=== PATIENT | female | born 1990 | race Caucasian/White ===

== ENCOUNTER 2018-11-24 19:25 | Emergency (ER) | payer OTHER ==
[~2018-11-24] VITALS: Ht 162.6 cm; Wt 96.0 kg
[2018-11-24 19:27] VITALS: BP 144/75; PULSE 74; RESP 18; Ht 162.6 cm; Wt 96.0 kg
[2018-11-24] MEDS ORDERED: AMOX1TAB10 PO (21:00)
[2018-11-24] MEDS ORDERED: AMOXICILLIN/CLAV 875 MG TAB PO ONE (21:00)
--- NOTE | 2018-11-24 21:06 | ERD ---
ER Documentation Chief Complaint Chief Complaint left earache since 1529 HPI 28yo Female presents to ED with complaint of left earache x 6 hours [employer]. Patient admits to recent cough and cold. Notes daughter recently diagnosed with ear infection and started on antibiotics. Patient admits to decreasedmuffled hearing, pain, denies discharge. Recent fevers, chills. Rates pain as 9 out of 10 notes to taking 2 Aleve 2 hours prior to presentation with no improvement in symptoms. ROS All systems reviewed and are negative except as per history of present illness. Medications Home Meds Active Scripts Amoxicillin/Potassium Clav (Amox-Clav 875-125 mg Tablet) 875-125 mg Tab, 1 TAB PO BID for 10 Days, #19 TAB Take for 10 days. 1st dose given in ED Prov:LONDON JACKSON PA-C 11/24/18 Allergies Allergies: Coded Allergies: No Known Allergies (Verified Allergy, Unknown, 11/24/18) PMhx/Soc Medical and Surgical Hx: pt denies Medical Hx, pt denies Surgical Hx Hx Alcohol Use: No Hx Substance Use: No Hx Tobacco Use: No Smoking Status: Never smoker FmHx Family History: No diabetes, No coronary disease, No other Physical Exam Vitals Vital Signs Date Temp Pulse Resp B/P (MAP) Pulse Ox O2 O2 Flow FiO2 Time Delivery Rate 11/24/18 97.6 21:18 11/24/18 99.2 74 18 144/75 97 19:27 (98) Physical Exam Constitutional: Well developed. Well nourished. No acute distress Head/Eyes: Atraumatic. Normocephalic. PERRL. EOMI ENT: Moist mucous membranes. Voice normal. Left TM erythematous and bulging. External auditory canal clear with no erythema or edema, no foreign body, no cerumen impaction, no discharge. Neck: Supple. No lymphadenopathy Cardiovascular: Regular rate and rhythm. No murmurs, rubs, or gallops. Distal pulses intact Respiratory: No respiratory distress. Normal breath sounds. No wheezes, rales, or rhonchi. Extremities: No edema, Full ROM Skin: Dry. No rashes. Warm Neurological: Alert and oriented X 3. Normal speech Psychiatric: Normal mood. Normal affect Results 24 hrs Current Medications Medications Dose Sig/Darrius Start Time Status Last (Trade) Ordered Route PRN Stop Time Admin Dose Reason Admin 875 mg ONCE ONCE 11/24/18 DC 11/24/18 Amoxicillin/ PO 21:00 21:08 Clavulanate 11/24/18 21:01 Potassium (Augmentin) Procedures/MDM MDM: Patients symptoms and physical exam findings are consistent with acute otitis media. The left tympanic membrane was erythematous and dull to light reflex on exam. No ear canal swelling or discharge, making otitis externa unlikely. Patient denies any ear discharge and loss of hearing. Denies history of diabetes mellitus. I have low suspicion for malignant otitis externa, mastoiditis, foreign body in ear canal, and TM perforation. I have prescribed the patient Augmentin first dose given here in the ED. Advised to continue with Tylenol/Motrin as needed for pain control. Patient is stable for discharge at this time, parents advised to follow up with PCP in 1-2 days. ED return precautions discussed. Patient expressed verbal understanding and agreement to treatment plan. Departure Diagnosis: Primary Impression: Otitis media Otitis media type: other nonsuppurative Chronicity: acute Laterality: left Recurrence: non-recurrent Qualified Codes: H65.192 - Other acute nonsuppurative otitis media, left ear Condition: Stable Patient Instructions: Torrie Krishnamurthy Tx (Adult) LONDON JACKSON PA-C Nov 24, 2018 21:06
== END 2018-11-24 21:17 | disposition home or self-care (01) ==
LOC: FTE 19:25
DX: H65.192 Other acute nonsuppurative otitis media, left ear (principal)
CPT/HCPCS: 99283